=== PATIENT | male | born 1975 | race Caucasian/White ===

== ENCOUNTER 2016-10-06 18:52 | Emergency (ER) | payer OTHER ==
--- NOTE | 2016-10-06 20:44 | DIAGNOSTIC IMAGING REPORT ---
PROCEDURE: XR LUMBAR SPINE 2 OR 3 VIEWS INDICATION: LOWER BACK PAIN TECHNIQUE: Three views. COMPARISON: None. FINDINGS: Degenerative changes of the lower lumbar facet joints. Osseous structures and disc spaces are otherwise normal. No evidence of an acute process or fracture. IMPRESSION: 1. Mild degenerative changes of the lumbar spine.
--- NOTE | 2016-10-06 21:16 | ED NURSING NOTES ---
Clinical Report - Nurses [facility] [address] [place] [address] 10/06/2016 18:54 Patient: CANDACE OKEEFE TRIAGE Triage time 1920 PM. Acuity: LEVEL 4. Chief Complaint: BACK PAIN. Alert. No acute distress. SEPSIS SCREEN: Sepsis Screen. Negative (no infection suspected/documented). MATI COMA SCORE: [place] Coma Scale: 15- eyes open spontaneously (4); best verbal response- oriented x 4 (5); best motor response- obeys commands (6). --19:25 Dominique Puentes R.N. 19:19 10/06/16. BP: 183/105. HR: 96. RR: 18. O2 saturation: 96% on room air. Temp: 97.9 F (oral). Pain level now: 04/18. --19:25 Dominique Puentes R.N. Weight: 122.4 kg stated. Height/Length: 70 inches Per Patient. BMI: 38.7. --19:18 Dominique Puentes R.N. Medications None. --19:20 Dominique Puentes R.N. Allergies No Known Drug Allergy. --19:20 Dominique Puentes R.N. Medication/allergy information source: the patient. --19:25 Dominique Puentes R.N. History Arrived by private vehicle. Primary physician (none). ( Pt states having a broken spine in 2013 and a cyst removal in 2012. As of 3 days ago pt states "lower back pain has increased and can't sleep" has taken ibuprofen with no relief. Here for evaluation, pt denies any injury or fall.). Onset. (3 days). He has had trouble walking and extremity pain. No numbness, weakness, tingling or fever. Treatment WATER COMMISSIONER: None. PAST MEDICAL HX: Tetanus status: unknown. Immunizations: status is unknown. SOCIAL HX: Heavy tobacco smoker- less than 1 pack per day. No alcohol use. No infectious disease exposure. ABUSE ASSESSMENT: No report of abuse. SELF HARM ASSESSMENT: A self harm assessment was performed. The patient answered "no" to the question "Do you have thoughts of harming or killing yourself?" and "Have you recently had thoughts about harming or killing others?". FALL RISK ASSESSMENT: Fall risk assessment completed. No fall risk identified. NUTRITIONAL RISK ASSESSMENT: The nutritional risk assessment revealed no deficiencies. FUNCTIONAL ASSESSMENT: Functional assessment: no impairments noted. LEARNING NEEDS ASSESSMENT: The learning needs assessment revealed no barriers. SKIN INTEGRITY ASSESSMENT: Skin integrity risk assessment completed. No skin integrity risk identified. --: Dominique Puentes R.N. PROBLEMS: Hypertension. Back Pain. --19: Dominique Puentes R.N. ADDITIONAL SURGERIES: Back Surgery. Fracture back. --: Dominique Puentes R.N. Interventions ID band on patient. --: Dominique Puentes R.N. PHYSICAL ASSESSMENT Ambulatory to room. GENERAL / NEURO / PSYCH: Alert. Oriented X 4. Appears in no acute distress. Appears in pain. RESPIRATORY: Respirations not labored. Breath sounds within normal limits. CVS: Capillary refill less than 2 seconds. GI / : Abdomen soft and nontender. Bowel sounds within normal limits. EXTREMITIES: Sensation intact in extremities. ROM of extremities within normal limits. BACK: Normal inspection of the neck and back. No neck or back tenderness. ROM of neck and back within normal limits. --:25 Dominique Puentes R.N. NURSING PROGRESS NOTES The initial plan of care for this patient has been created This plan of care was discussed with the patient. Patient gowned. Reassurance given. Two patient identifiers checked. Call light placed in reach. Side rails up x 1. Bed placed in lowest position. Brakes of bed on. --19: Dominique Puentes R.N. 19:33 10/06/2016 Toradol (Ketorolac Tromethamine) IM 60 mg given. Given in the right deltoid and left deltoid (split dose). Allergies verified and confirmed 5 rights. --19:33 Dominique Puentes R.N. Reassurance given. Overall patient status is the same- he states feels better. BACK: The patient reports back pain. Patient walked back to ED from radiology. Call light placed in reach. Side rails up x 1. --20:20 Dominique Puentes R.N. 20:19 10/06/16. BP: 167/105. HR: 88. RR: 15. O2 saturation: 98%. Pain level now: 02/15. --20:20 Dominique Puentes R.N. DISPOSITION / DISCHARGE Condition at departure: improved. No learning barriers present. Discharge instructions provided and reviewed with the patient and spouse. Reviewed medication(s) side effects, precautions, dosing and course information. Prescription(s) given to the patient. Reviewed referral to family practice. Patient verbalized understanding. Written instructions provided in Greenlandic. The patient was discharged home and accompanied by spouse. He left the Emergency Department ambulatory and via private vehicle. Spouse driving. Medication list reviewed and validated. --21:30 Leelee Traylor R.N. 21:29 10/06/16. BP: 155/92. HR: 88. RR: 20. O2 saturation: 100%. Temp: deferred. Pain level now: 12/16. 20:10/06/16. BP: 167/105. HR: 88. RR: 15. O2 saturation: 98%. Pain level now: 02/15. 19:10/06/16. BP: 183/105. HR: 96. RR: 18. O2 saturation: 96% on room air. Temp: 97.9 F (oral). Pain level now: 04/18. --21:30 Leelee Traylor R.N. Locked/Released at 10/06/2016 21:31 by Leelee Traylor R.N.
--- NOTE | 2016-10-06 21:16 | ED CLINICAL REPORT ---
Clinical Report - Physicians/Mid Levels [facility] [address] [place] [address] 10/06/2016 18:54 Patient: CANDACE OKEEFE Time Seen: 19:15; upon arrival, initial patient contact, initial documentation, patient care assumed. Arrived- By private vehicle. Historian- patient and spouse. HISTORY OF PRESENT ILLNESS Chief Complaint: BACK PAIN. It is described as being severe. It is described as being in the area of the left lower lumbar spine, left SI joint, lower lumbar spine, right lower lumbar spine and right SI joint. It is described as radiating to the right hip and thigh and to the left thigh. The quality is noted to be "pain". Onset- about 2 - 3 days ago and it is still present. No bladder dysfunction, bowel dysfunction, sensory loss or motor loss. Patient denies an injury but injury to the head or neck. No other injury. Similar symptoms previously: None. Recent medical care: Not recently seen/assessed. REVIEW OF SYSTEMS No fever, difficulty with urination, urinary frequency, hematuria or difficulty breathing. No chest pain or abdominal pain. All systems otherwise negative, except as recorded above. PAST HISTORY See nurses notes. PROBLEMS: Hypertension. Back Pain. --19:21 Dominique Puentes R.N. ADDITIONAL SURGERIES: Back Surgery. Fracture back. --19:21 Dominique Puentes R.N. SOCIAL HISTORY Heavy tobacco smoker. Occasional alcohol use. No drug use. No recent travel. Is a local resident. He lives with spouse. FAMILY HISTORY Negative. ADDITIONAL NOTES The nursing notes have been reviewed with agreement regarding the chief complaint, HPI, ROS, PMH and patient medications and allergies. PHYSICAL EXAM Vital Signs: 10/06/2016 19:19 BP: 183/105. HR: 96. RR: 18. O2 saturation: 96%. Temp: 97.9 F. Pain level now: 9/10. Have been reviewed as abnormal and appear to be correct. Hypertensive. Heart rate normal. Respiratory rate normal. Temperature normal. Oxygen saturation normal. Appearance: Alert. No acute distress. HEENT: Normal external inspection. Eyes: Pupils equal, round and reactive to light. Neck: Normal inspection. Neck nontender. Painless ROM. CVS: Heart sounds normal. Pulses normal. Respiratory: No respiratory distress. Breath sounds normal. Abdomen: No visible injury. Soft and nontender. Back: No tenderness. Abnormal inspection. No painless ROM. Mildly limited ROM in the back- in the lumbar spine: decreased flexion, right lateral bending, left lateral bending and rotation to the right and left. No muscle spasm in the back, vertebral point tenderness, soft tissue tenderness or CVA tenderness. Skin: Skin warm and dry. Normal skin color. No rash. Normal skin turgor. Extremities: Extremities exhibit normal ROM. Extremities nontender. Neuro: Oriented X 3. Mood/affect normal. No motor deficit. No sensory deficit. LABS, X-RAYS, AND EKG X-Rays: LS spine series. LS-Spine X-rays: (IMPRESSION: 1. Mild degenerative changes of the lumbar spine. Electronically Final signed by:Mason Alan MD 10/06/2016 8:42:22 PM). The X-rays were interpreted by the radiologist and contemporaneously by me. PROGRESS AND PROCEDURES Patient counseled in person regarding the patient's stable condition, test results and diagnosis. 20:46. Differential Diagnosis: I considered Musculo-skeletal strain, contusion, retroperitoneal hematoma, disk protrusion, vertebral fracture, sacroiliac joint strain, sciatica, osteoarthritis, lumbar spondylosis, spinal stenosis, ankylosing spondylitis and sacroiliac joint inflammation as a possible cause of back pain in this patient. This is a partial list of diagnoses considered. Above considerations are based on history, physical exam and X-Ray data. Differential diagnosis was discussed with patient. Disposition: Discharged home in good and improved condition (21:16). Condition: good and stable. CLINICAL IMPRESSION Acute nontraumatic lumbar back pain. Sciatica present on the right and left. INSTRUCTIONS Warnings: GENERAL WARNINGS: Return or contact your physician immediately if your condition worsens or changes unexpectedly, if not improving as expected, or if other problems arise. SPECIFICALLY, return if you develop incontinence of feces (loss of bowel control) or urine (loss of bladder control). Prescription Medications: Flexeril 10 mg: Take 1 orally every 8 hours as needed for muscle spasm. Dispense twenty (20). No refills. Substitution is permissible. [place] 5 mg / 325 mg tablets: take 1 to 2 orally every 6 hours as needed for pain. Dispense fifteen (15). No refills. Substitution is permissible. Follow-up: Follow up with your doctor in about three days even if well. Call for an appointment. Summary of care provided to patient. Understanding of the discharge instructions verbalized by patient. Follow-up with: Sen Coulter MD, [facility], , [facility], [address] [place] [address] Follow up in about one week as needed. Call for an appointment. Summary of care provided to patient. (Electronically signed by Gabriela Rogers A.R.N.P. 10/06/2016 21:44)
--- NOTE | 2016-10-06 21:16 | ED CLINICAL REPORT ---
Clinical Report - Physicians/Mid Levels [facility] [address] [place] [address] 10/06/2016 18:54 Patient: CANDACE OKEEFE Time Seen: 19:15; upon arrival, initial patient contact, initial documentation, patient care assumed. Arrived- By private vehicle. Historian- patient and spouse. HISTORY OF PRESENT ILLNESS Chief Complaint: BACK PAIN. It is described as being severe. It is described as being in the area of the left lower lumbar spine, left SI joint, lower lumbar spine, right lower lumbar spine and right SI joint. It is described as radiating to the right hip and thigh and to the left thigh. The quality is noted to be "pain". Onset- about 2 - 3 days ago and it is still present. No bladder dysfunction, bowel dysfunction, sensory loss or motor loss. Patient denies an injury but injury to the head or neck. No other injury. Similar symptoms previously: None. Recent medical care: Not recently seen/assessed. REVIEW OF SYSTEMS No fever, difficulty with urination, urinary frequency, hematuria or difficulty breathing. No chest pain or abdominal pain. All systems otherwise negative, except as recorded above. PAST HISTORY See nurses notes. PROBLEMS: Hypertension. Back Pain. --19:21 Dominique Puentes R.N. ADDITIONAL SURGERIES: Back Surgery. Fracture back. --19:21 Dominique Puentes R.N. SOCIAL HISTORY Heavy tobacco smoker. Occasional alcohol use. No drug use. No recent travel. Is a local resident. He lives with spouse. FAMILY HISTORY Negative. ADDITIONAL NOTES The nursing notes have been reviewed with agreement regarding the chief complaint, HPI, ROS, PMH and patient medications and allergies. PHYSICAL EXAM Vital Signs: 10/06/2016 19:19 BP: 183/105. HR: 96. RR: 18. O2 saturation: 96%. Temp: 97.9 F. Pain level now: 9/10. Have been reviewed as abnormal and appear to be correct. Hypertensive. Heart rate normal. Respiratory rate normal. Temperature normal. Oxygen saturation normal. Appearance: Alert. No acute distress. HEENT: Normal external inspection. Eyes: Pupils equal, round and reactive to light. Neck: Normal inspection. Neck nontender. Painless ROM. CVS: Heart sounds normal. Pulses normal. Respiratory: No respiratory distress. Breath sounds normal. Abdomen: No visible injury. Soft and nontender. Back: No tenderness. Abnormal inspection. No painless ROM. Mildly limited ROM in the back- in the lumbar spine: decreased flexion, right lateral bending, left lateral bending and rotation to the right and left. No muscle spasm in the back, vertebral point tenderness, soft tissue tenderness or CVA tenderness. Skin: Skin warm and dry. Normal skin color. No rash. Normal skin turgor. Extremities: Extremities exhibit normal ROM. Extremities nontender. Neuro: Oriented X 3. Mood/affect normal. No motor deficit. No sensory deficit. LABS, X-RAYS, AND EKG X-Rays: LS spine series. LS-Spine X-rays: (IMPRESSION: 1. Mild degenerative changes of the lumbar spine. Electronically Final signed by:Mason Alan MD 10/06/2016 8:42:22 PM). The X-rays were interpreted by the radiologist and contemporaneously by me. PROGRESS AND PROCEDURES Patient counseled in person regarding the patient's stable condition, test results and diagnosis. 20:46. Differential Diagnosis: I considered Musculo-skeletal strain, contusion, retroperitoneal hematoma, disk protrusion, vertebral fracture, sacroiliac joint strain, sciatica, osteoarthritis, lumbar spondylosis, spinal stenosis, ankylosing spondylitis and sacroiliac joint inflammation as a possible cause of back pain in this patient. This is a partial list of diagnoses considered. Above considerations are based on history, physical exam and X-Ray data. Differential diagnosis was discussed with patient. Disposition: Discharged home in good and improved condition (21:16). Condition: good and stable. CLINICAL IMPRESSION Acute nontraumatic lumbar back pain. Sciatica present on the right and left. INSTRUCTIONS Warnings: GENERAL WARNINGS: Return or contact your physician immediately if your condition worsens or changes unexpectedly, if not improving as expected, or if other problems arise. SPECIFICALLY, return if you develop incontinence of feces (loss of bowel control) or urine (loss of bladder control). Prescription Medications: Flexeril 10 mg: Take 1 orally every 8 hours as needed for muscle spasm. Dispense twenty (20). No refills. Substitution is permissible. [place] 5 mg / 325 mg tablets: take 1 to 2 orally every 6 hours as needed for pain. Dispense fifteen (15). No refills. Substitution is permissible. Follow-up: Follow up with your doctor in about three days even if well. Call for an appointment. Summary of care provided to patient. Understanding of the discharge instructions verbalized by patient. Follow-up with: Sen Coulter MD, [facility], , [facility], [address] [place] [address] Follow up in about one week as needed. Call for an appointment. Summary of care provided to patient. (Electronically signed by Gabriela Rogers A.R.N.P. 10/06/2016 21:44)
--- NOTE | 2016-10-06 21:17 | ED ORDER SUMMARY ---
..... Patient: CANDACE OKEEFE OrderSheet [facility] VisitID: [id number] [address] [place] [place] [address] 41y, M Registration Date/Time: 10/06/2016 ORDER SHEET Weight: 122.4 kg (stated) Allergies: No Known Drug Allergy GENERAL ORDERS: Lumbar Spine 2 or 3V Urgent (19:59 10/06/2016 HBivens A.R.N.P.) (Ack 20:10 AMcQuoid ER Tech1) (20:12 EHassan R.N.) MEDICATION ORDERS: Toradol IM 60 mg (NOW) (19:28 10/06/2016 HBivens A.R.N.P.) (19:33 EHassan R.N.) IV FLUIDS: ORDER SHEET NOTES: [Electronically signed by Leelee Traylor R.N. (21:30 10/06/2016)] [Electronically signed by Gabriela Rogers.R.N.P. (21:44 10/06/2016)] [Electronically locked/signed by Leelee Traylor R.N. (21:30 10/06/2016)]
--- NOTE | 2016-10-06 21:17 | ED ORDER SUMMARY ---
..... Patient: CANDACE OKEEFE OrderSheet [facility] VisitID: [id number] [address] [place] [address] 41y, M Registration Date/Time: 10/06/2016 ORDER SHEET Weight: 122.4 kg (stated) Allergies: No Known Drug Allergy GENERAL ORDERS: Lumbar Spine 2 or 3V Urgent (19:59 10/06/2016 HBivens A.R.N.P.) (Ack 20:10 AMcQuoid ER Tech1) (20:12 EHassan R.N.) MEDICATION ORDERS: Toradol IM 60 mg (NOW) (19:28 10/06/2016 HBivens A.R.N.P.) (19:33 EHassan R.N.) IV FLUIDS: ORDER SHEET NOTES: [Electronically signed by Leelee Traylor R.N. (21:30 10/06/2016)] [Electronically signed by Gabriela Rogers.R.N.P. (21:44 10/06/2016)] [Electronically locked/signed by Leelee Traylor R.N. (21:30 10/06/2016)]
--- NOTE | 2016-10-06 21:45 | ED MED RECONCILIATION SUMMARY ---
Patient: CANDACE OKEEFE Medication Reconciliation Report [facility] VisitID: [id number] [address] [place] [address] 41y, M Registration Date/Time: 10/06/2016 Weight: 122.4 kg Height/Length: 70 in. BMI: 38.7 ALLERGIES: No Known Drug Allergy The patient's Home Medications are listed below: NONE. The source(s) of the original Home Medication information: patient The following Medications were given to the patient in the Emergency Department: Toradol [IM] IM 60 mg, administered: 10/06/2016 7:33:00 PM The following Medications were prescribed to the patient: Flexeril 10 mg: Take 1 orally every 8 hours as needed for muscle spasm. Dispense twenty (20). No refills. Substitution is permissible. -- Gabriela Rogers, A.R.N.P. [place] 5 mg / 325 mg tablets: take 1 to 2 orally every 6 hours as needed for pain. Dispense fifteen (15). No refills. Substitution is permissible. -- Gabriela Rogers, A.R.N.P.
--- NOTE | 2016-10-06 21:45 | ED MED RECONCILIATION SUMMARY ---
Patient: CANDACE OKEEFE Medication Reconciliation Report [facility] VisitID: [id number] [address] [place] [address] 41y, M Registration Date/Time: 10/06/2016 Weight: 122.4 kg Height/Length: 70 in. BMI: 38.7 ALLERGIES: No Known Drug Allergy The patient's Home Medications are listed below: NONE. The source(s) of the original Home Medication information: patient The following Medications were given to the patient in the Emergency Department: Toradol [IM] IM 60 mg, administered: 10/06/2016 7:33:00 PM The following Medications were prescribed to the patient: Flexeril 10 mg: Take 1 orally every 8 hours as needed for muscle spasm. Dispense twenty (20). No refills. Substitution is permissible. -- Gabriela Rogers, A.R.N.P. [place] 5 mg / 325 mg tablets: take 1 to 2 orally every 6 hours as needed for pain. Dispense fifteen (15). No refills. Substitution is permissible. -- Gabriela Rogers, A.R.N.P.
--- NOTE | 2016-10-06 21:45 | ED DISCHARGE INSTRUCTIONS ---
Patient: CANDACE OKEEFE General Instructions [facility] VisitID: [id number] [address] [place] [address] 41y, M Registration Date/Time: 10/06/2016 Acute nontraumatic lumbar back pain. Sciatica present on the right and left. INSTRUCTIONS Warnings: GENERAL WARNINGS: Return or contact your physician immediately if your condition worsens or changes unexpectedly, if not improving as expected, or if other problems arise. SPECIFICALLY, return if you develop incontinence of feces (loss of bowel control) or urine (loss of bladder control). Prescription Medications: Flexeril 10 mg: Take 1 orally every 8 hours as needed for muscle spasm. Dispense twenty (20). No refills. Substitution is permissible. [place] 5 mg / 325 mg tablets: take 1 to 2 orally every 6 hours as needed for pain. Dispense fifteen (15). No refills. Substitution is permissible. Follow-up: Follow up with your doctor in about three days even if well. Call for an appointment. Summary of care provided to patient. Understanding of the discharge instructions verbalized by patient. Follow-up with: Sen Coulter MD, [facility], , [facility], [address] [place] [address] Follow up in about one week as needed. Call for an appointment. Summary of care provided to patient. ADDITIONAL INFORMATION Back Pain [Acute Or Chronic] Back pain is usually caused by an injury to the muscles or ligaments of the spine. Sometimes the disks that separate each bone in the spine may bulge and cause pain by pressing on a nearby nerve. Back pain may also appear after a sudden twisting/bending force (such as in a car accident), after a simple awkward movement, or lifting something heavy with poor body positioning. In either case, muscle spasm is often present and adds to the pain. Acute back pain usually gets better in one to two weeks. Back pain related to disk disease, arthritis in the spinal joints or spinal stenosis (narrowing of the spinal canal) can become chronic and last for months or years. Unless you had a physical injury (for example, a car accident or fall) X-rays are usually not ordered for the initial evaluation of back pain. If pain continues and does not respond to medical treatment, x-rays and other tests may be performed at a later time. Home Care: You may need to stay in bed the first few days. But, as soon as possible, begin sitting or walking to avoid problems with prolonged bed rest (muscle weakness, worsening back stiffness and pain, blood clots in the legs). When in bed, try to find a position of comfort. A firm mattress is best. Try lying flat on your back with pillows under your knees. You can also try lying on your side with your knees bent up towards your chest and a pillow between your knees. Avoid prolonged sitting. This puts more stress on the lower back than standing or walking. During the first two days after injury, apply an ICE PACK to the painful area for 20 minutes every 2-4 hours. This will reduce swelling and pain. HEAT (hot shower, hot bath or heating pad) works well for muscle spasm. You can start with ice, then switch to heat after two days. Some patients feel best alternating ice and heat treatments. Use the one method that feels the best to you. You may use acetaminophen (Tylenol) or ibuprofen (Motrin, Advil) to control pain, unless another pain medicine was prescribed. [NOTE: If you have chronic liver or kidney disease or ever had a stomach ulcer or GI bleeding, talk with your doctor before using these medicines.] Be aware of safe lifting methods and do not lift anything over 15 pounds until all the pain is gone. Follow Up with your doctor or this facility if your symptoms do not start to improve after one week. Physical therapy may be needed. [NOTE: If X-rays were taken, they will be reviewed by a radiologist. You will be notified of any new findings that may affect your care.] Get Prompt Medical Attention if any of the following occur: Pain becomes worse or spreads to your legs Weakness or numbness in one or both legs Loss of bowel or bladder control Numbness in the groin or genital area Sciatica Sciatica ("Lumbar Radiculopathy") causes a pain that spreads from the lower back down into the buttock, hip and leg. Sometimes leg pain can occur without any back pain. Sciatica is due to irritation or pressure on a spinal nerve as it comes out of the spinal canal. This is most often due to a bulge or rupture of a nearby spinal disk (the cartilage cushion between each spinal bone), which presses on a nearby nerve. Other causes include spinal stenosis (narrowing of the spinal canal) and spasm of the pyriform muscle (a muscle in the buttocks that the sciatic nerve passes through). Sciatica may begin after a sudden twisting/bending force (such as in a car accident), or sometimes after a simple awkward movement. In either case, muscle spasm is commonly present and contributes to the pain. The diagnosis of sciatica is made from the symptoms and physical exam. Unless you had a physical injury (such as a car accident or fall), X-rays are usually not ordered for the initial evaluation of sciatica because the nerves and disks cannot be seen on an x-ray. If signs of a compressed nerve are present (for example, loss of tendon reflex or strength in the leg), an MRI (magnetic resonance imaging) scan will need to be scheduled as an outpatient. Most sciatica (80-90%) gets better with medicine, exercise, physical therapy. If symptoms continue after at least three months of medical treatment, surgery may be considered. Home Care: You may need to stay in bed the first few days. But, as soon as possible, begin sitting or walking to avoid problems with prolonged bed rest. When in bed, try to find a position of comfort. A firm mattress is best. Try lying flat on your back with pillows under your knees. You can also try lying on your side with your knees bent up towards your chest and a pillow between your knees. Avoid prolonged sitting. This puts more stress on the lower back than standing or walking. Some persons find relief with heat (hot shower, hot bath or heating pad) and massage, while others prefer cold packs (crushed or cubed ice in a plastic bag, wrapped in a towel). Try both and use the method that feels best for 20 minutes several times a day. You may use acetaminophen (Tylenol) or ibuprofen (Motrin, Advil) to control pain, unless another pain medicine was prescribed. [ NOTE: If you have chronic liver or kidney disease or ever had a stomach ulcer or GI bleeding, talk with your doctor before using these medicines.] Be aware of safe lifting methods and do not lift anything over 15 pounds until all the pain is gone. Follow Up with your doctor or this facility if your symptoms do not start to improve after one week. Physical therapy or further testing may be needed. [NOTE: If X-rays were taken, they will be reviewed by a radiologist. You will be notified of any new findings that may affect your care.] Get Prompt Medical Attention if any of the following occur: Pain becomes worse, not controlled by the prescribed medicine Weakness or numbness in one or both legs Numbness in the groin, genital area Loss of bowel or bladder control Cyclobenzaprine Hydrochloride Oral tablet What is this medicine? CYCLOBENZAPRINE (priya padilla) is a muscle relaxer. It is used to treat muscle pain, spasms, and stiffness. How should I use this medicine? Take this medicine by mouth with a glass of water. Follow the directions on the prescription label. If this medicine upsets your stomach, take it with food or milk. Take your medicine at regular intervals. Do not take it more often than directed. Talk to your bakery associate regarding the use of this medicine in children. Special care may be needed. What side effects may I notice from receiving this medicine? Side effects that you should report to your doctor or health critical care unit nurse as soon as possible: allergic reactions like skin rash, itching or hives, swelling of the face, lips, or tongue chest pain fast heartbeat hallucinations seizures vomiting Side effects that usually do not require medical attention (report to your doctor or health critical care unit nurse if they continue or are bothersome): headache What may interact with this medicine? Do not take this medicine with any of the following medications: cisapride droperidol flecainide grepafloxacin halofantrine levomethadyl MAOIs like Carbex, Eldepryl, Marplan, Nardil, and Parnate nilotinib pimozide probucol sertindole This medicine may also interact with the following medications: abarelix alcohol contrast dyes dolasetron guanethidine medicines for cancer medicines for depression, anxiety, or psychotic disturbances medicines to treat an irregular heartbeat medicines used for sleep or numbness during surgery or procedure methadone octreotide ondansetron palonosetron phenothiazines like chlorpromazine, mesoridazine, prochlorperazine, thioridazine some medicines for infection like alfuzosin, chloroquine, clarithromycin, levofloxacin, mefloquine, pentamidine, troleandomycin tramadol vardenafil What if I miss a dose? If you miss a dose, take it as soon as you can. If it is almost time for your next dose, take only that dose. Do not take double or extra doses. Where should I keep my medicine? Keep out of the reach of children. Store at room temperature between 15 and 30 degrees C (59 and 86 degrees F). Keep container tightly closed. Throw away any unused medicine after the expiration date. What should I tell my health care provider before I take this medicine? They need to know if you have any of these conditions: heart disease, irregular heartbeat, or previous heart attack liver disease thyroid problem an unusual or allergic reaction to cyclobenzaprine, tricyclic antidepressants, lactose, other medicines, foods, dyes, or preservatives or trying to get breast-feeding What should I watch for while using this medicine? Check with your doctor or health critical care unit nurse if your condition does not improve within 1 to 3 weeks. You may get drowsy or dizzy when you first start taking the medicine or change doses. Do not drive, use machinery, or do anything that may be dangerous until you know how the medicine affects you. Stand or sit up slowly. Your mouth may get dry. Drinking water, chewing sugarless gum, or sucking on hard candy may help. Hydrocodone Bitartrate, Acetaminophen Oral tablet What is this medicine? ACETAMINOPHEN; HYDROCODONE (a set a BHAVIK yordy fen; jyoti droe KOE done) is a pain reliever. It is used to treat mild to moderate pain. How should I use this medicine? Take this medicine by mouth. Swallow it with a full glass of water. Follow the directions on the prescription label. If the medicine upsets your stomach, take the medicine with food or milk. Do not take more than you are told to take. Talk to your bakery associate regarding the use of this medicine in children. This medicine is not approved for use in children. What side effects may I notice from receiving this medicine? Side effects that you should report to your doctor or health critical care unit nurse as soon as possible: allergic reactions like skin rash, itching or hives, swelling of the face, lips, or tongue breathing problems confusion feeling faint or lightheaded, falls stomach pain yellowing of the eyes or skin Side effects that usually do not require medical attention (report to your doctor or health critical care unit nurse if they continue or are bothersome): nausea, vomiting stomach upset What may interact with this medicine? alcohol antihistamines isoniazid medicines for depression, anxiety, or psychotic disturbances medicines for sleep muscle relaxants naltrexone narcotic medicines (opiates) for pain phenobarbital ritonavir tramadol What if I miss a dose? If you miss a dose, take it as soon as you can. If it is almost time for your next dose, take only that dose. Do not take double or extra doses. Where should I keep my medicine? Keep out of the reach of children. This medicine can be abused. Keep your medicine in a safe place to protect it from theft. Do not share this medicine with anyone. Selling or giving away this medicine is dangerous and against the law. Store at room temperature between 15 and 30 degrees C (59 and 86 degrees F). Protect from light. Keep container tightly closed. Throw away any unused medicine after the expiration date. Discard unused medicine and used packaging carefully. Pets and children can be harmed if they find used or lost packages. What should I tell my health care provider before I take this medicine? They need to know if you have any of these conditions: brain tumor Crohn's disease, inflammatory bowel disease, or ulcerative colitis drink more than 3 alcohol-containing drinks per day drug abuse or addiction head injury heart or circulation problems kidney disease or problems going to the bathroom liver disease lung disease, asthma, or breathing problems an unusual or allergic reaction to acetaminophen, hydrocodone, other opioid analgesics, other medicines, foods, dyes, or preservatives or trying to get breast-feeding What should I watch for while using this medicine? Tell your doctor or health critical care unit nurse if your pain does not go away, if it gets worse, or if you have new or a different type of pain. You may develop tolerance to the medicine. Tolerance means that you will need a higher dose of the medicine for pain relief. Tolerance is normal and is expected if you take the medicine for a long time. Do not suddenly stop taking your medicine because you may develop a severe reaction. Your body becomes used to the medicine. This does NOT mean you are addicted. Addiction is a behavior related to getting and using a drug for a non-medical reason. If you have pain, you have a medical reason to take pain medicine. Your doctor will tell you how much medicine to take. If your doctor wants you to stop the medicine, the dose will be slowly lowered over time to avoid any side effects. You may get drowsy or dizzy when you first start taking the medicine or change doses. Do not drive, use machinery, or do anything that may be dangerous until you know how the medicine affects you. Stand or sit up slowly. There are different types of narcotic medicines (opiates) for pain. If you take more than one type at the same time, you may have more side effects. Give your health care provider a list of all medicines you use. Your doctor will tell you how much medicine to take. Do not take more medicine than directed. Call emergency for help if you have problems breathing. The medicine will cause constipation. Try to have a bowel movement at least every 2 to 3 days. If you do not have a bowel movement for 3 days, call your doctor or health critical care unit nurse. Too much acetaminophen can be very dangerous. Do not take Tylenol (acetaminophen) or medicines that contain acetaminophen with this medicine. Many non-prescription medicines contain acetaminophen. Always read the labels carefully. You have been given the following additional information: Back Pain (Acute Or Chronic) Back Pain W/ Sciatica Cyclobenzaprine Hydrochloride Oral tablet Hydrocodone Bitartrate, Acetaminophen Oral tablet (Electronically signed by Gabriela Rogers A.R.N.P. 10/06/2016 21:44)
--- NOTE | 2016-10-06 21:45 | ED MAR SUMMARY ---
..... Medication Administration Record [facility] [address] [place] [address] Patient: CANDACE OKEEFE Visit ID: [id number] 41y, M Weight: 122.4 kg Height/Length: 70 in BMI: 38.7 ALLERGIES: No Known Drug Allergy Given 19:33 10/06/2016 Dominique Puentes R.N. Medication Administered: TORADOL [IM] (KETOROLAC TROMETHAMINE), Dose: 60 mg IM. Medication Ordered: Toradol IM 60 mg (NOW).
--- NOTE | 2016-10-06 21:45 | ED MAR SUMMARY ---
..... Medication Administration Record Merged With [facility] [address] [place] [address] Patient: CANDACE OKEEFE Visit ID: [id number] 41y, M Weight: 122.4 kg Height/Length: 70 in BMI: 38.7 ALLERGIES: No Known Drug Allergy Given 19:33 10/06/2016 Dominique Puentes R.N. Medication Administered: TORADOL [IM] (KETOROLAC TROMETHAMINE), Dose: 60 mg IM. Medication Ordered: Toradol IM 60 mg (NOW).
== END 2016-10-06 21:22 | disposition home or self-care (01) ==
LOC: ED SRH 18:52
DX: M54.41 Lumbago with sciatica, right side (principal); M54.42 Lumbago with sciatica, left side; I10 Essential (primary) hypertension; F17.210 Nicotine dependence, cigarettes, uncomplicated